=== PATIENT | male | born 2000 | race Caucasian/White ===

== ENCOUNTER 2019-05-26 07:52 | Day surgery (SDC) | payer BC ==
[~2019-05-26] VITALS: Ht 193 cm; Wt 76.8 kg
[2019-05-26 08:42] VITALS: BP 126/74; Ht 193 cm; Wt 76.8 kg
[2019-05-26] MEDS ORDERED: HYDROCODON-ACE1 EA10 PO (14:17)
--- NOTE | 2019-05-28 11:57 | OP ---
PATIENT NAME: MINDI THOMPSON MEDICAL RECORD: [id number] :98 LOCATION:[facility] ADMISSION DATE: SURGEON: EULOGIO TENA MD DATE OF OPERATION: 05/26/2019 PREOPERATIVE DIAGNOSIS: Scaphoid fracture of the right wrist. POSTOPERATIVE DIAGNOSIS: Scaphoid fracture of the right wrist. PROCEDURE: Open reduction internal fixation of scaphoid fracture. SURGEON: Eulogio Tena MD FLOOR COVERINGS INSTALLER: None. INTRAOPERATIVE COMPLICATIONS: None. SUMMARY OF PATHOLOGIC FINDINGS: Consistent with preoperative diagnosis, the patient had a mid-waist scaphoid fracture with a small cystic area in the middle. The 4-0 compression screw utilized to completely fill the void left by the cyst. OPERATIVE SUMMARY IN DETAIL: After obtaining the appropriate preoperative orthopedic surgery consent as well as anesthetic consultation, evaluation and clearance, the patient was brought to the operating room and placed on the operating table in supine position. After general laryngeal mask airway was administered, tourniquet was placed on the proximal aspect of the right upper extremity. Right upper extremity was then prepped in a routine sterile fashion. The arm was elevated and exsanguinated, tourniquet was inflated to 350 mmHg. Fluoroscopic guidance was then utilized to place a single guidepin from proximal pole of the scaphoid to the distal pole of the scaphoid. A very small incision was made to be sure that the extensor mechanism were completely retracted. Once the appropriate alignment was seen on all planes as well as a real time fluoroscopy, the proximal pole was slightly tapped and then a 22-mm compression screw was placed across the fracture site. Care was taken to be sure that the entire component of the screw was encased within the scaphoid itself. Excellent anatomic caodaism was achieved. Wound was then irrigated and closed with 4-0 Prolene. Having completed this, sterile dressings were applied. Tourniquet was deflated and then a thumb spica splint was applied. The patient was then awakened and taken to the recovery room in stable condition. All final needle and sponge counts were correct. TRANSINT:[id number] Voice Confirmation ID: [id number] DOCUMENT ID: [id number] EULOGIO TENA MD at 1157 CC: [id number] DICTATION DATE: 05/27/19 1014 TRAINING INTERN: 05/27/19 1210 DEP SDC 05/26/19 [facility] [address] [id number]
== END 2019-05-26 14:55 | disposition home or self-care (01) ==
LOC: D.OPS 07:52 → D.PAN 10:45 → D.OPS 10:45
PROVIDERS: ATTEND Orthopaedic Surgery
DX: S62.001A Unspecified fracture of navicular [scaphoid] bone of right wrist, initial encounter for closed fracture (principal); X58.XXXA Exposure to other specified factors, initial encounter; M25.531 Pain in right wrist